=== PATIENT | male | born 1990 | race Caucasian/White ===

== ENCOUNTER 2020-05-28 23:10 | Emergency (ER) | payer MEDICAID, SELFPAY ==
--- NOTE | ~2020-05-28 | CT_ITS ---
EXAMINATION: CT abdomen pelvis wo con DATE: 05/29/2020 01:40 INDICATION: Bilateral flank pain TECHNIQUE: Computed tomography (CT) of the abdomen and pelvis was performed without intravenous contr ast. Automated exposure control and iterative reconstruction technique were employed. Exam dose: 440 .96 mGy-cm total exam DLP. COMPARISON: None. FINDINGS: The lung bases are clear. Normal heart size. No pericardial or pleural effusion. No hepatic, splenic, pancreatic, and adrenal or renal space-occupying occupying mass lesion is eviden t on this limited noncontrast examination. There are 2 pinpoint nonobstructing left renal calculi. No other urinary tract calculus or hydrourete ronephrosis is detected. The urinary bladder is unremarkable. Normal caliber of the abdominal aorta. No intraperitoneal or retroperitoneal or pelvic mass lesion or adenopathy or ascites. Normal appendix. No bowel obstruction, bowel wall thickening, pneumatosis or intraperitoneal free air . Included skeletal structures are unremarkable. IMPRESSION: 2 pinpoint nonobstructing left renal calculi; no urinary tract obstruction or hydrourete ronephrosis Reviewed, dictated and finalized at [facility]. Reviewed, dictated and finalized at location [facility]. IMPRESSION: 2 pinpoint nonobstructing left renal calculi; no urinary tract obs truction or hydroureteronephrosis
--- NOTE | ~2020-05-28 | XR_ITS ---
XR abdomen/kub 1V DATE: 05/29/2020 01:37 INDICATION: Bilateral flank pain for 2 weeks TECHNIQUE: AP projection, 2 views COMPARISON: 05/29/[address] abdomen pelvis FINDINGS: The lung bases are clear. Normal heart size. The psoas shadows are intact. No visceromegaly is evident. There is no evidence of bowel obstruction. A few calcified pelvic phleboliths are noted. Included skeletal structures are unremarkable. IMPRESSION: No significant abnormality Reviewed, dictated and finalized at [facility]. Reviewed, dictated and finalized at location [facility]. IMPRESSION: No significant abnormality
[2020-05-28 23:13] VITALS: BP 133/74; PULSE 83; RESP 20; TEMP 36.4; O2SAT 100
[2020-05-28 23:48] LABS: Basophils Percent Auto 0.4 % (0.2-1.2); Eosinophils Absolute Auto 0.2 K/mm3 (0-0.3); Eosinophils Percent Auto 2.3 % (0-4.4); Hemoglobin 13.8 g/dL (14.0-18.0); Immature Granulocyte Absolute 0.03 K/mm3 (0.00-0.031); Immature Granulocyte Percent A 0.4 % (0-0.5); Lymphocytes Absolute Auto 2.46 K/mm3 (0.9-3.2); Lymphocytes Percent Auto 35.7 % (18.3-44.2); Mean Corpuscular HGB Conc 33.7 g/dl (32-36); Mean Corpuscular Hemoglobin 28.4 pg (26-34); Mean Corpuscular Volume 84.4 fl (80-100); Mean Platelet Volume 9.3 fl (7.4-10.4); Monocytes Absolute Auto 0.5 K/mm3 (0.1-0.6); Monocytes Percent Auto 7.4 % (2.6-8.5); Neutrophils Absolute Auto 3.7 K/mm3 (1.3-6.7); Neutrophils Percent Auto 53.8 % (45.5-73.1); Platelet Count Result 275 k/mm3 (150-375); Red Blood Count 4.86 M/mm3 (4.6-6.20); Red Cell Distribution Width 13.6 % (11.5-14.5); White Blood Count 6.9 K/mm3 (4.5-10.0)
[2020-05-29 00:05] LABS: Alanine Aminotransferase 16 U/L (4-50); Albumin Level 4.5 g/dL (3.5-5.1); Alkaline Phosphatase 76 U/L (38-126); Anion Gap 8 mmol/L (8-16); Aspartate Amino Transferase 18 U/L (17-59); Bilirubin,Total 0.3 mg/dL (0.2-1.3); Blood Urea Nitrogen 18 mg/dL (9-20); Calcium 9.4 mg/dL (8.4-10.2); Carbon Dioxide 28 mmol/L (22-30); Chloride 106 mmol/L (98-107); Estimated CRCL calculation 116 ml/min; Estimated Glomerular Filt Rate > 60; Glucose 88 mg/dL (75-110); Potassium 3.9 mmol/L (3.4-5.0); Sodium 142 mmol/L (137-145)
[2020-05-29 00:17] LABS: Add Urine Microscopic? YES; Amorphous Sediment Urine Moderate; Appearance Urine Turbid (Clear); Bilirubin Urine Negative (Negative); Blood Urine Negative (Negative); Color Urine Yellow (Yellow); Glucose Urine UA Negative (Negative); Ketones Urine Negative (Negative); Leukocyte Esterase Ur Negative LEU/UL (Negative); Mucus Urine Rare /lpf; Nitrate Urine Negative (Negative); Protein Urine 1+ mg/dL (Negative); Specific Grav Ur 1.024 (1.001-1.035); WBC Urine 0-3 /hpf
--- NOTE | 2020-05-29 01:23 | ED.BACK ---
HPI - Back Pain/Injury General Chief Complaint: Urogenital-Male Stated Complaint: Bilat flank pain, decreased UO Time Seen by Provider: 05/29/20 00:51 Source: patient Mode of arrival: EMS Limitations: no limitations History of Present Illness HPI Narrative: This patient is a 29 year old male who presents for evaluation of bilateral flank and decreased urination. Patient states he developed bilateral kidney pain 2 weeks ago. His pain has continued to worsen and it states his pain radiates to his abdomen. He also reports he thinks he has only urinated twice since he has been in [place] [facility]. He denies nausea, vomiting or fever. He denies any injuries. Related Data Home Medications Medication Instructions Recorded Confirmed No Home Medications 05/28/20 05/28/20 Allergies Allergy/AdvReac Type Severity Reaction Status Date / Time No Known Allergies Allergy Verified 05/28/20 23:17 Review of Systems Review of Systems: All systems reviewed & are unremarkable except as noted in HPI and below Constitutional: Constitutional: Denies chills and Denies fever(s) Cardiovascular: Cardiovascular: Denies chest pain Gastrointestinal: Gastrointestinal: Reports abdominal pain, Reports nausea and Reports vomiting Genitourinary: Genitourinary: Reports oliguria [facility] Past Medical History Medical History (Updated 05/29/20 @ 03:46 by Angelika Cotto MD) Patient denies medical problems Surgical History Surgical History (Updated 05/29/20 @ 01:25 by Angelika Cotto MD) No significant past surgical history Social History Social History (Updated 05/29/20 @ 01:25 by Angelika Cotto MD) Alcohol intake: never Substance use: never Exam Const: General: no acute distress and alert Orientation/consciousness: patient oriented x3 HENMT: Head: atraumatic Face and sinus: face symmetric Mouth: Yes Normal oral and palatal mucosa present, Yes lip normal and Yes oropharynx normal Throat: uvula midline Eyes: EOM: EOMs intact bilaterally Chest: Chest palpation & inspection: normal inspection of the chest Resp: Effort & Inspection: normal respiratory effort, no retractions and no use of accessory muscles Auscultation: clear to auscultation bilaterally GI: GI Palp: Yes Soft to palpation and Yes Tenderness to palpation present (GI) (Diffuse) Auscultation: normal bowel sounds : General: Yes no CVA tenderness Back/Spine/Pelvis: Back: no CVA tenderness Skin: General skin exam: normal color Rashes: no rashes Neuro: General: patient oriented x3 and moves all extremities Course Reevaluation(s) Reevaluation #1: Patient states he feels much better. He states his pain is resolving. I Discussed labs are unremarkable and CT shows left renal nephrolithiasis. Date: 05/29/20 Time: 03:42 Vital Signs Vital signs: Vital Signs Temperature 97.6 F 05/28/20 23:13 Pulse Rate 83 05/28/20 23:13 Respiratory Rate 20 05/28/20 23:13 Blood Pressure 133/74 05/28/20 23:13 Pulse Oximetry 100 05/28/20 23:13 Temperature 97.8 F 05/29/20 01:50 Pulse Rate 64 05/29/20 01:50 Respiratory Rate 16 05/29/20 01:50 Blood Pressure 130/92 H 05/29/20 01:50 Pulse Oximetry 100 05/29/20 01:50 MDM - Back Pain/Injury Lab Data Attestation: I reviewed the patient's lab results. Result diagrams: 05/28/20 23:36 05/28/20 23:36 Labs: Lab Results 05/28/20 05/28/20 05/28/20 Range/Units 23:21 23:36 23:36 WBC 6.9 (4.5-10.0) K/mm3 RBC 4.86 (4.6-6.20) M/mm3 Hgb 13.8 L (14.0-18.0) g/dL Hct 41.0 L (42.0-52.0) % MCV 84.4 (80-100) fl MCH 28.4 (26-34) pg MCHC 33.7 (32-36) g/dl RDW 13.6 (11.5-14.5) % Plt Count 275 (150-375) k/mm3 MPV 9.3 (7.4-10.4) fl Immature Gran % (Auto) 0.4 (0-0.5) % Neut % (Auto) 53.8 (45.5-73.1) % Lymph % (Auto) 35.7 (18.3-44.2) % [place] % (Auto) 7.4 (2.6-8.5) % Eos % (Auto) 2.3 (0-4.4) % B
[2020-05-29] MEDS: LACTATED RINGERS 1,000 ML 999 ML IV CONT (01:44)
[2020-05-29] MEDS: ONDANSETRON INJ 4 MG/2 ML VIAL IV PUSH (01:45)
[2020-05-29] MEDS: KETOROLAC 30 MG/ML VIAL (*BKC) IV PUSH (01:45)
[2020-05-29 01:46] LABS: Creatine Kinase 48 U/L (55-170)
[2020-05-29 01:50] VITALS: BP 130/92; PULSE 64; RESP 16; TEMP 36.6; O2SAT 100
== END 2020-05-29 03:51 | disposition home or self-care (01) ==
PROVIDERS: Emergency Medicine; Emergency Provider General Practice; PCP Internal Medicine
DX: R10.9 Unspecified abdominal pain (principal); N20.0 Calculus of kidney
CPT/HCPCS: 36415; 74018; 74176; 80053; 81001; 82550; 85025; 96361; 96374; 96375; 99284; J1885; J2405; J7120

== ENCOUNTER 2023-04-26 19:49 | Inpatient (IN) | payer BC, SELFPAY ==
--- NOTE | ~2023-04-26 | CT_ITS ---
EXAMINATION: CT LE LT w con DATE: 04/27/2023 10:11 INDICATION: Left lower limb osteomyelitis. TECHNIQUE: Computed tomography (CT) of the left lower limb was performed with 100 mL Omnipaque 350 in travenous contrast. Automated exposure control and iterative reconstruction technique were employed. The dose-length product was 2218.61 mGy-cm. COMPARISON: Ultrasound 04/26/2023 FINDINGS: The bladder is distended. Bone alignment is normal. No fracture. There is no osteomyelitis. There is mild left hip osteoarthritis. No knee joint effusion. There is a small Aranda's cyst. There are multiple skin defects in the lower leg. There is skin thickening and subcutaneous fat stranding i n the lower leg, consistent with cellulitis. IMPRESSION: 1. Left lower leg cellulitis. No abscess. 2. No evidence of osteomyelitis. Reviewed, dictated and finalized at location A.
--- NOTE | ~2023-04-26 | CT_ITS ---
EXAMINATION: CT hand RT w con DATE: 04/27/2023 00:51 INDICATION: Right hand swelling. TECHNIQUE: Computed tomography (CT) of the right hand was performed with 200 mL Omnipaque 350 intrave nous contrast. Automated exposure control and iterative reconstruction technique were employed. The d ose-length product was 1193.12 mGy-cm. COMPARISON: None FINDINGS: Bone alignment is normal. No fracture. Joint spaces are normal. There are small effusions o f the second-fifth metacarpophalangeal joints. There is diffuse soft tissue swelling of the hand and wrist. Dorsal to the second metacarpophalangeal joint, there is ill-defined low attenuation measuring 19 x 7 mm. IMPRESSION: 1. Diffuse soft tissue swelling of the hand and wrist. 19 x 7 mm ill-defined low-attenuation dorsal t o second metacarpophalangeal joint, consistent with phlegmon versus early abscess. Reviewed, dictated and finalized at location A. IMPRESSION: 1. Diffuse soft tissue swelling of the hand and wrist. 19 x 7 mm ill-defined lo w-attenuation dorsal to second metacarpophalangeal joint, consistent with phleg mon versus early abscess.
--- NOTE | ~2023-04-26 | US_ITS ---
EXAMINATION: US venous doppler UE RT DATE: 04/26/2023 23:10 INDICATION: Right upper limb swelling. TECHNIQUE: Grayscale ultrasound images without and with compression and Doppler ultrasound images of the right upper extremity veins were obtained. COMPARISON: None. FINDINGS: The visualized portions of the right internal jugular vein, subclavian vein, axillary vein, brachial veins, basilic vein, cephalic vein, radial vein, and ulnar vein are patent. IMPRESSION: 1. No deep venous thrombosis. Reviewed, dictated and finalized at location A.
--- NOTE | ~2023-04-26 | US_ITS ---
EXAMINATION: US soft tissue LE RT DATE: 04/26/2023 23:14 INDICATION: Right calf abscess. TECHNIQUE: Multiple grayscale and Doppler ultrasound images of the right lower limb were obtained. COMPARISON: None FINDINGS: There is no abnormal mass or fluid collection. IMPRESSION: 1. No abscess identified. Reviewed, dictated and finalized at location A. IMPRESSION: 1. No abscess identified.
--- NOTE | ~2023-04-26 | CT_ITS ---
EXAMINATION: CT LE RT w con DATE: 04/27/2023 09:55 INDICATION: Right lower limb osteomyelitis. TECHNIQUE: Computed tomography (CT) of the right lower limb was performed with 100 mL Omnipaque 350 i ntravenous contrast. Automated exposure control and iterative reconstruction technique were employed. The dose-length product was 2218.61 mGy-cm. COMPARISON: Ultrasound 04/26/2023 FINDINGS: The bladder is distended. Bone alignment normal. No fracture. There is no evidence of osteo myelitis. There is mild right hip osteoarthritis. No knee joint effusion. There is an osteochondral l esion of medial talar dome. There are multiple skin defects in right lower leg. There is skin thicke santana and subcutaneous fat stranding in right lower leg, consistent with cellulitis. IMPRESSION: 1. Cellulitis in right lower leg. No abscess. 2. No evidence of osteomyelitis. Reviewed, dictated and finalized at location A.
--- NOTE | ~2023-04-26 | US_ITS ---
EXAMINATION: US soft tissue LE LT DATE: 04/26/2023 23:14 INDICATION: Left calf abscess. TECHNIQUE: Multiple grayscale and Doppler ultrasound images of the left calf were obtained. COMPARISON: None FINDINGS: There is no mass or fluid collection in the patient's area of concern in left calf. IMPRESSION: 1. No abscess identified. Reviewed, dictated and finalized at location A. IMPRESSION: 1. No abscess identified.
[2023-04-26 19:57] VITALS: BP 134/86; PULSE 96; RESP 16; TEMP 36.9; O2SAT 100
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
[2023-04-26 22:21] LABS: Basophils Percent Auto 0.3 % (0.2-1.2); Eosinophils Absolute Auto 0.2 K/mm3 (0-0.3); Eosinophils Percent Auto 1.6 % (0-4.4); Hemoglobin 9.2 g/dL (14.0-18.0); Immature Granulocyte Absolute 0.04 K/mm3 (0.00-0.031); Immature Granulocyte Percent A 0.4 % (0-0.5); Lymphocytes Absolute Auto 1.73 K/mm3 (0.9-3.2); Lymphocytes Percent Auto 17.6 % (18.3-44.2); Mean Corpuscular HGB Conc 30.7 g/dl (32-36); Mean Corpuscular Hemoglobin 23.8 pg (26-34); Mean Corpuscular Volume 77.5 fl (80-100); Mean Platelet Volume 7.8 fl (7.4-10.4); Monocytes Absolute Auto 0.5 K/mm3 (0.1-0.6); Neutrophils Absolute Auto 7.4 K/mm3 (1.3-6.7); Neutrophils Percent Auto 75.1 % (45.5-73.1); Platelet Count Result 425 k/mm3 (150-375); Red Blood Count 3.87 M/mm3 (4.6-6.20); Red Cell Distribution Width 15.1 % (11.5-14.5); White Blood Count 9.8 K/mm3 (4.5-10.0)
[2023-04-26 22:29] LABS: Lactic Acid Reflex 0.9 mmol/L (0.7-2.0)
[2023-04-26 22:31] LABS: Alanine Aminotransferase 20 U/L (6-50); Albumin Level 3.8 g/dL (3.5-5.1); Alkaline Phosphatase 106 U/L (38-126); Anion Gap 7 mmol/L (8-16); Aspartate Amino Transferase 31 U/L (17-59); Bilirubin,Total 0.3 mg/dL (0.2-1.3); Blood Urea Nitrogen 9 mg/dL (9-20); Carbon Dioxide 27 mmol/L (22-30); Chloride 99 mmol/L (98-107); Estimated CRCL calculation 131 ml/min; Estimated Glomerular Filt Rate > 60; Glucose 100 mg/dL (65-110); Potassium 4.1 mmol/L (3.4-5.0); Sodium 133 mmol/L (137-145)
[2023-04-26 23:13] LABS: CRP 7.7 mg/dL (<1.0)
[2023-04-26 23:16] LABS: Erythrocyte Sedimentation Rate > 140 mm/hr (0-20)
[2023-04-26 23:43] LABS: Procalcitonin 0.1 ng/mL
[2023-04-27] VITALS (8 sets, daily range): BP systolic 121–138; BP diastolic 67–92; PULSE 72–98; RESP 12–16; TEMP 36.7–37.2; O2SAT 96–100; BMI 10.5; BMI 21.9
--- NOTE | 2023-04-27 | ECHO_ITS ---
Patient Info Name: Truong Rolon Age: 32 years : 1990 Gender: Male Ht: 77 in Wt: 185 lbs BSA: 2.13 m2 HR: 78 bpm BP: 121 / 67 mmHg Technical Quality: Fair Exam Date: 04/27/2023 9:47 AM Exam Location: [facility] Pulmonary Exam Room: [facility] Patient Status: Inpatient Admit Date: 04/27/2023 Staff Ordering Physician: Mani Rose MD C S S Representative: Vicki Yates RDCS Attending Provider: Mani Rose MD Exam Type: CA echo dop bubble study w con Study Info Indications - HX/O IVDA EVAL FOR ENDOCARDITIS Complete two-dimensional, color flow and Doppler transthoracic echocardiogram is performed with agitated saline. Contrast/Agitated Saline Contrast/Ag. Saline: Agitated Saline Amount: 20.00 ml Existing IV Access: Yes IV Access Condition: patent with no signs of infiltration Summary 1. Left ventricular chamber dimension is normal. 2. Left ventricular systolic function is normal, estimated at 60-65%. 3. The left ventricular diastolic function is normal. 4. E/e' 5 is not elevated. 5. Agitated saline injection with and without valsalva maneuver and several bubbles shunted to left side cardiac chambers suggestive of a patent foramen ovale. 6. There is trace mitral valve regurgitation. 7. There is trace tricuspid valve regurgitation. Left Ventricle E/e' 5 is not elevated. Left ventricular chamber dimension is normal. Left ventricular systolic function is normal, estimated at 60-65%. The left ventricular diastolic function is normal. Right Ventricle Right ventricular chamber dimension is normal. Right ventricular systolic function is normal. Left Atria Left atrial chamber dimension is normal. Right Atria Right atrial chamber dimension is normal. Atrial Septum Agitated saline injection with and without valsalva maneuver and several bubbles shunted to left side cardiac chambers suggestive of a patent foramen ovale. Suspected patent foramen ovale visualized by 2D, color flow and agitated saline imaging. Aortic Valve The aortic valve is trileaflet. There is no aortic valve stenosis. There is no aortic valve regurgitation. No aortic valve vegetation visualized. Pulmonic Valve There is no pulmonic regurgitation. No pulmonic valve vegetation visualized. Mitral Valve There is no mitral valve stenosis. There is trace mitral valve regurgitation. No mitral valve vegetation visualized. Tricuspid Valve There is trace tricuspid valve regurgitation. No tricuspid valve vegetation visualized. Pericardium/Pleural There is no pericardial effusion. Inferior Vena Cava Normal inferior vena cava with >50% collapse upon inspiration consistent with normal right atrial pressure, 5 mmHg. Aorta The aortic root size at the sinus of Valsalva is normal. Left Ventricular Outflow Tract Name Value Normal LVOT 2D LVOT Diameter 2.1 cm LVOT Doppler LVOT Peak Gradient 7 mmHg LVOT Mean Gradient 4 mmHg LVOT VTI 24 cm LVOT VTI/AV VTI Ratio 0.9 LVOT Stroke Volume 85 ml LVOT CO 18.7
[2023-04-27] MEDS: PIPERACILLN/TAZ 3.375GM/NS50ML 3.375 GM/50 ML BAG IVPB ×2 (00:25→06:02)
[2023-04-27 00:29] LABS: INR 1.1; Prothrombin Time 15.2 Seconds (11.1-14.7)
[2023-04-27 00:30] LABS: Partial Thromboplastin Time 36.9 SECONDS (22.3-36.8)
[2023-04-27 00:52] LABS: NT Pro B Type Natriuretic Pept 47 pg/mL (19.9-100)
--- NOTE | 2023-04-27 01:15 | ADMGEN ---
This patient, Truong Rolon, was admitted to [facility] Surg Room 320-01. Patient/family oriented to hospital policies and general routines including ID bracelet, bed and alarms, visiting hours, pain management, procedures, bathroom and other care routines, personal items, smoking policy, room service/diet, and visiting hours. Information on how to activate the Rapid Response Team has been discussed. Patient/Family are encouraged to report perceived risks to care and to ask questions if they do not understand what they are told or what they should do.
--- NOTE | 2023-04-27 05:33 | PM.IMHP ---
H&P: HPI History of Present Illness Date/Time: 04/27/23 05:33 Chief Complaint: Right hand pain swelling and significant drainage of pus Narrative: This is a 32-year-old male with a history of significant IV drug abuse using fentanyl mixed with xylazine, a significant amount 3 times a day, who is presenting to the ER with a worsening right hand and finger swelling and drainage of pus. The patient's baseline is that he is homeless. He uses IV fentanyl 3 times a day with a high amount. He is a very intelligent patient understands how to mix fentanyl and use substances to counteract the effects on his skin. He gave me a detailed description of how he mixes the fentanyl that he obtains. He gave me a detailed history of his knowledge fentanyl mixed with xylazine, and his knowledge of these chemicals around the [facility]. Three days ago the patient began noticing his right index finger was starting to swell and he took a needle and started draining pus out of it. This infection progressed to the top of his hand on the dorsal side. He continued procedures to drain that abscess by himself with using a needle and squeezing the pus out. Today he was able to drain all the pus out of his finger and hand. However he said his friend got pulled over by the police and then as result the police brought him here to the hospital due to his significant wounds and infection. He denies any fevers or chills. He noticed similar drainage in his bilateral lower extremities and there is associated puncture wounds and pus drainage over the past few months as well. He is normally able to self drain the pus from these infections. All of the sites on his upper and lower extremities are from a regular fentanyl use. In the ER the patient was started on vancomycin and Zosyn. He had elevated inflammatory markers and his CRP and ESR. His lactic acid was within normal limits. He was not septic. In the ER ultrasound of the right arm a with venous Doppler to rule out DVT, CT of the right hand for abscess, and ultrasound of the bilateral lower extremities soft tissue were done. The results are as follows. Right upper extremity venous Doppler negative for DVT. Ultrasound of the bilateral lower extremity calves shows no subcutaneous fluid collection. CT of the right hand shows early abscesses and joint fluid in the 2nd digit of the joint space in the finger as well as the wrist. The patient has been an IV drug user for many years. He has never tried methadone but is willing to try. 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 Review of Systems Review of Systems: Negative other than what is stated in the [facility] Past Medical History Medical History (Updated 04/27/23 @ 06:12 by Mani Rose MD) Patient denies medical problems Surgical History Surgical History (Updated 05/29/20 @ 01:25 by Angelika Cotto MD) No significant past surgical history Social History Social History (Updated 04/26/23 @ 23:44 by Kelli Sandoval PA-C) Smoking packs per day: 1 Smoking cigarettes per day: 20.0 Smoking status: Current every day smoker Tobacco type: cigarettes Second hand tobacco smoke exposure: Yes Alcohol intake: never Substance use: current Substance use type: IV drugs and other Other substance usage details: fenanyl Lack of Transportation: No Lack of Food: Never True Current Housing: I Have Housing Concerned About Future Housing: No Difficulty Paying Gas/Electric Bills: No Difficulty Paying for Meds: No Currently Unemployed: No Education: Trade/Vocational Certificate Difficulty w/ Childcare or Family Care: No Spiritual care concerns: No Meds Home Medications and Allergies Home Medications Medication Instructions Recorded Confirmed Type No Home Medications 05/28/20 04/27/23 History Allergies Allergy/AdvReac Type Severity Reaction Status Date / Time No Known Allergies Allergy Verified
[2023-04-27] MEDS: methADONE HCL (*CRX) 10 MG TABLET 40 MG PO (06:23)
[2023-04-27] MEDS: LORazepam INJ (*CRX) 2 MG/ML VIAL IV PUSH (06:25)
[2023-04-27] MEDS: SODIUM CHLORIDE 0.9% IV 1,000 ML 100 ML IV CONT (07:29)
[2023-04-27] MEDS: ENOXAPARIN 40 MG/0.4 ML SYRINGE SUB-Q (08:36)
[2023-04-27 11:58] LABS: Hematocrit 28.9 % (42.0-52.0); Hemoglobin 9.3 g/dL (14.0-18.0); Mean Corpuscular HGB Conc 32.2 g/dl (32-36); Mean Corpuscular Hemoglobin 24.2 pg (26-34); Mean Corpuscular Volume 75.1 fl (80-100); Mean Platelet Volume 8.1 fl (7.4-10.4); Platelet Count Result 458 k/mm3 (150-375); Red Blood Count 3.85 M/mm3 (4.6-6.20); Red Cell Distribution Width 15.2 % (11.5-14.5); White Blood Count 6.3 K/mm3 (4.5-10.0)
[2023-04-27 12:14] LABS: Alanine Aminotransferase 20 U/L (6-50); Albumin Level 3.4 g/dL (3.5-5.1); Alkaline Phosphatase 90 U/L (38-126); Anion Gap 9 mmol/L (8-16); Aspartate Amino Transferase 35 U/L (17-59); Bilirubin,Total 0.4 mg/dL (0.2-1.3); Blood Urea Nitrogen 9 mg/dL (9-20); Calcium 8.4 mg/dL (8.4-10.2); Carbon Dioxide 26 mmol/L (22-30); Chloride 104 mmol/L (98-107); Estimated CRCL calculation 152 ml/min; Estimated Glomerular Filt Rate > 60; Glucose 98 mg/dL (65-110); Potassium 5.6 mmol/L (3.4-5.0); Sodium 139 mmol/L (137-145)
--- NOTE | 2023-04-27 13:54 | PM.IMPN ---
Progress Note: A&P Assessment and Plan (1) Opioid withdrawal: Code(s): F11.93 - Opioid use, unspecified with withdrawal Status: Acute Assessment and Plan: P.r.n. Ativan and morphine for opioid withdrawal 1 time dose of methadone 40 mg. P.r.n. hydroxyzine, hydralazine, Zofran also for withdrawal High chance the patient leaves AMA (2) Open wound of right index finger: Code(s): S61.200A - Unspecified open wound of right index finger without damage to nail, initial encounter Assessment and Plan: CT shows early evidence of abscess in the finger and wrist Consult hand surgeon due to finger abscess. Patient is on IV vanc and cefepime. Continue antibiotics until cultures are received. Patient is not septic. However he felt dehydrated so 1 L of normal saline will be provided for him. (3) Open wounds involving multiple regions of lower extremity: Code(s): S81.809A - Unspecified open wound, unspecified lower leg, initial encounter Status: Acute Assessment and Plan: The patient has wounds in both the bilateral lower extremities. Both lower extremity ultrasound showed no subcutaneous fluid collections CT scans negative for osteomyelitis but did reveal cellulitis without abscess. Continue vancomycin and cefepime (4) Intravenous drug abuse: Code(s): F19.10 - Other psychoactive substance abuse, uncomplicated Status: Acute Assessment and Plan: Endocarditis needs to be ruled out in this patient. Follow-up TTE Fortunately the patient is not septic. He is not febrile. However his history points to areas of multiple wounds, multiple lesions, and multiple areas of infection. Most likely he has just been injecting it he has multiple areas but endocarditis needs to be ruled out. Subjective Date/time seen: 04/27/23 13:54 Interval history: Patient denies any pain in his thumb and lower extremities. Patient states that the wounds have been present for going on a week. He states that he drains his own abscesses by using a needle and then pressing out the pus. He has many scars from previous wounds all over his arms and chest. He denies any systemic symptoms such as fever, body aches, chills, nausea and vomiting. Exam Narrative: GENERAL: Comfortable, no acute distress HENMT: moist mucous membranes EYES: EOM intact b/l NECK: no lymphadenopathy RESPIRATORY: clear to auscultation CARDIO: RRR GI: soft, nontender, bowel sounds present SKIN: Multiple skin wounds over the bilateral calves that are bandaged. Wound over the hand that is actively secreting pus. Erythema and edema over the right hand. Objective Data Vital Signs Vital Signs: Vital Signs - 24 hr 04/26/23 19:57 04/27/23 00:20 04/27/23 00:53 Temperature 98.4 F Pulse Rate 96 82 98 Respiratory Rate 16 14 15 Blood Pressure 134/86 133/81 Pulse Oximetry 100 100 100 Oxygen Delivery Room Air 04/27/23 00:55 04/27/23 05:20 04/27/23 04:00 Temperature 98.1 F 98.9 F Pulse Rate 73 72 91 Respiratory Rate 16 14 Blood Pressure 138/92 H 121/67 Pulse Oximetry 100 96 Oxygen Delivery 04/27/23 08:36 Temperature Pulse Rate Respiratory Rate Blood Pressure Pulse Oximetry Oxygen Delivery Room Air Intake/Output Intake/Output: Intake & Output 04/24/23 04/25/23 04/26/23 04/27/23 23:59 23:59 23:59 23:59 Intake Total 410 Output Total 400 Balance 10 Meds/Results Medications: Active Medications Generic Name Dose Route Start Last Admin Trade Name Freq PRN Reason Stop Dose Admin Enoxaparin Sodium 40 mg 04/27/23 09:00 04/27/23 08:36 Enoxaparin 40 Mg/0.4 Ml Syringe SUB-Q 40 mg DAILY JOSÉ MIGUEL Administration Hydralazine HCl 10 mg 04/27/23 06:04 Hydralazine Hcl 20 Mg/Ml Vial IV PUSH Q6H PRN Blood Pressure - High Hydroxyzine HCl 25 mg 04/27/23 06:04 Hydroxyzine Hcl 25 Mg Tablet PO Q6H PRN
--- NOTE | 2023-04-27 13:55 | ECG_ITS ---
Measurements Intervals [place] Rate: 79 P: 66 WI: 159 QRS: 42 QRSD: 90 T: 38 QT: 376 QTc: 431 Interpretive Statements SINUS RHYTHM NORMAL ELECTROCARDIOGRAM NO PREVIOUS ECG AVAILABLE FOR COMPARISON Electronically Signed On 04-27-2023 16:08:23 CDT by Santiago Loco M.D.
[2023-04-27] MEDS: SODIUM ZIRCONIUM CYCLOSILICATE 10 GM POWD.PACK PO (14:10)
[2023-04-27] MEDS: CEFEPIME 2 GM/NS 50 ML 2 GM/50 ML BAG IVPB (14:10)
--- NOTE | 2023-04-27 16:18 | WPDCN ---
Assessment and Plan Assessment and plan (1) Abscess of multiple sites of right hand and fingers: Code(s): L02.511 - Cutaneous abscess of right hand Status: Acute Assessment and Plan: May need open drainage in the OR. Will keep NPO tonight and reevaluate early in the morning. (2) Open wounds involving multiple regions of lower extremity: Code(s): S81.809A - Unspecified open wound, unspecified lower leg, initial encounter Status: Acute Assessment and Plan: No cellulitis of abscess. Multiple chronic deep open wounds. Consider us of Fentanyl contaminated with Tranq. HPI Data of Consult Date/Time: 04/27/23 16:18 Requesting Physician: Mani Rose MD Primary Care Provider: Johnny Godoy, Consult Narrative Reason for consult: D Narrative: Truong Rolon is a 32 year old male admitted last night with swelling and drainage from his right index finger and multiple other open sores of the hands and legs from illicit drug popping. He is a pleasant verbal gent who is currently homeless though he has recently been living with his parents. He admits to regular use of self administered drugs by needle for years. He reports a history of back pain leading to use of fentanyl and possibly other drugs to relieve pain. He has been through some form of detox in the past. He expresses frustration with one of his recent providers who's supplies he says didn't smell or look right and have caused multiple punctate ulcerations in his legs. (Tranq?) The swelling in his right hand and wrist were much worse yesterday, but spontaneous drainage has improved his condition. He says he lives in [place]. He says he has not been admitted before for abscess because he drains his own abscesses. He has been offered surgery in the past for his back pain but he fears the potential consequences of that and has opted for the relief provided by illicit drug use. Review of Systems Review of Systems: The patient reports no history of liver lung heart or kidney disease. Despite the swelling in his legs he is ambulatory. He has multiple scars on his right forearm and complains that some prior dressing regimen caused that. He is an everyday smoker. He said he was not in a great deal of pain but felt that he was beginning to have withdrawal symptoms. [facility] Past Medical History Medical History Patient denies medical problems Surgical History Surgical History No significant past surgical history Social History Social History Smoking packs per day: 1 Smoking cigarettes per day: 20.0 Smoking status: Current every day smoker Tobacco type: cigarettes Second hand tobacco smoke exposure: Yes Alcohol intake: never Substance use: current Substance use type: IV drugs and other Other substance usage details: fenanyl Lack of Transportation: No Lack of Food: Never True Current Housing: I Have Housing Concerned About Future Housing: No Difficulty Paying Gas/Electric Bills: No Difficulty Paying for Meds: No Currently Unemployed: No Education: Trade/Vocational Certificate Difficulty w/ Childcare or Family Care: No Spiritual care concerns: No Meds Home Medications and Allergies Home Medications Medication Instructions Recorded Confirmed Type No Home Medications 05/28/20 04/27/23 History Allergies Allergy/AdvReac Type Severity Reaction Status Date / Time No Known Allergies Allergy Verified 05/28/20 23:17 Vital Signs Vital Signs - 24 hr 04/26/23 19:57 04/27/23 00:20 04/27/23 00:53 Temperature 98.4 F Pulse Rate 96 82 98 Respiratory Rate 16 14 15 Blood Pressure 134/86 133/81 Pulse Oximetry 100 100 100 Oxygen Delivery Room Air 04/27/23 00:55 04/27/23 05:20 04/27/23 04:00
--- NOTE | 2023-04-27 17:00 | PC.NURSE ---
Pt left AMA, provider notified. Pt had been sleeping for the majority of the day. Pt states that we aren't doing anything to treat him and that he was leaving. Pt was educated that we were treating infections with antibiotics, that he had previously been given methadone and ativan to help with withdrawal symptoms. Pt was offered ativan and pt stated that it wouldn't do anything and that he was still leaving. Pt was educated that his infection would likely worsen, pt stated he is aware of the risks. Pt was educated that the plan was to possibly take him to surgery tomorrow morning to drain the infection in his hand and pt stated, I don't need any surgery, I will drain it myself . Pt was advised against doing that and pt did not respond to advice. Pt was informed that by leaving AMA we would not be able to help pt with leaving, or give pt anymore medications. Pt responded with I know what AMA means and signed the paper. Nurse informed charge nurse and signed as witness to pt signature. Pt was monitored for any changes in status while here. Pt walked out on his own at 1615. Pt IV was removed at 1600, pt tolerated well.
== END 2023-04-27 16:15 | disposition left against medical advice (07) | DRG 383 ==
LOC: ANHED 21:43 → ANH3MEDSUR 04-27 00:51
PROVIDERS: Emergency Medicine; Admitting Provider Internal Medicine; Emergency Provider Physician Assistant; PCP Internal Medicine; Visit Provider Internal Medicine Critical Care Medicine
DX: L02.511 Cutaneous abscess of right hand (principal); L03.113 Cellulitis of right upper limb; L03.115 Cellulitis of right lower limb; L03.116 Cellulitis of left lower limb; Z59.00 Homelessness unspecified; L97.919 Non-pressure chronic ulcer of unspecified part of right lower leg with unspecified severity; L97.928 Non-pressure chronic ulcer of unspecified part of left lower leg with other specified severity; F11.10 Opioid abuse, uncomplicated; F17.210 Nicotine dependence, cigarettes, uncomplicated; E86.0 Dehydration
CPT/HCPCS: 36415; 73201; 73701; 76882; 80053; 83605; 83880; 84145; 85025; 85027; 85610; 85652; 85730; 86140; 87040; 87070; 87147; 87181; 87186; 87205; 93005; 93306; 93971; 96365; 96374; 96375; 96376; 99285; A9270; G0378; G0379; J0692; J1650; J2060; J2270; J2543; J3370; J7030; Q9967